=== PATIENT | male | born 1940 | race American Indian/Alaskan Native ===

== ENCOUNTER → 2019-06-13 | Emergency (ER) | payer MEDICARE ==
[~2019-06-13] MED LIST: ATROPINE 0.1% (CARDIAC) ONE; ATROPINE IV ONE; CALCIUM GLUCONATE 1,000 MG in NACL 0.9% 100 ML IV ONE; D50W (25GM) Syringe IV ONE; HumuLIN R IV ONE; INTROPIN DRIP 800 MG/D5W 250 ML 800 MG/250 ML BAG IV ONE; INTROPIN DRIP 800 MG/D5W 250 ML IV ONE; KIONEX PO ONE; LEVAQUIN 750MG/150ML 750 MG/150 ML BAG IV ONE; LEVOPHED DRIP 4 MG/NS 250 ML 4 MG/250 ML BAG IV ONE; LEVOPHED DRIP 4 MG/NS 250 ML 4 MG/250 ML BAG IV SCH; NACL 0.9% 1000 ML 1,000 ML IV ONE; NACL 0.9% 1000 ML 1,000 ML ONE; PROVENTIL IH ONE; TYLENOL PR PRN; Vasostrict 20 UNIT in NACL 0.9% 100 ML IV SCH
--- NOTE | 2019-06-13 02:51 | Emergency Department Report ---
HPI - General Chief Complaint: Dyspnea/Respdistress Time Seen by Provider: 06/13/19 01:49 - HPI HPI: 78-year-old -French male presents to the emergency department via EMS from his [facility] long-term with a complaint of some hypoxia and respiratory distress. 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 He has a history of hypertension, hydrocephalus, [id number] diabetes and has previous respiratory failure leading to tracheostomy. The patient is a poor historian but at this point his and son are at bedside providing some information. His primary care physician is a Dr. Jackson. Per EMS, the oxygen saturation was down in the 60s until he was given some supplemental oxygen and then it went up to about 85%. ED Past Medical Hx - Past Medical History Previous Medical History?: Yes Hx CVA: Yes Hx Diabetes: Yes Hx Deep Vein Thrombosis: Yes Hx COPD: Yes Additional medical history: obstructive hydrocephalus, - Surgical History Past Surgical History?: Yes Additional Surgical History: tracheostomy, g-tube - Social History Smoking Status: Unknown if ever smoked ED Review of Systems ROS: Stated complaint: SOURAV Other details as noted in HPI Comment: Unobtainable due to pts medical conditions Physical Exam - Physical Exam Vital Signs: Vital Signs 06/13/19 01:56 Temperature 99 F Pulse Rate 104 H Respiratory 25 H Rate O2 Sat by Pulse 90 Oximetry Physical Exam: GENERAL: Patient is ill-appearing and unresponsive. HENT: Normocephalic. Atraumatic. Patient has moist mucous membranes. EYES: Pupils are reactive but sluggish. NECK: Supple. Trachea in color in place. CHEST/LUNGS: Rhonchi at the bases. Coarse breath sounds. Bradypnea with some shallow snoring respirations. .There is respiratory distress noted. HEART/CARDIOVASCULAR: Irregular. Variable rate going between bradycardia and tachycardia. ABDOMEN: Abdomen is soft. PEG tube in place. SKIN: Skin is cool but dry. NEURO: The patient is unresponsive to any verbal or painful stimuli. MUSCULOSKELETAL: Contracted extremities. There is no evidence of acute injury. ED Course Vital Signs 06/13/19 01:56 Temperature 99 F Pulse Rate 104 H Respiratory 25 H Rate O2 Sat by Pulse 90 Oximetry - Reevaluation(s) Reevaluation #1: I had a long conversation with the patient's family regarding his CODE STATUS. After updating them about his ED course thus far and his critical/poor prognosis, and the fact that he is on multiple pressors and still has hypotension, the family has decided to make the patient DO NOT RESUSCITATE. DO NOT RESUSCITATE form has been signed by the patient's spouse. I was also made aware that we are unable to continue using pressors through the right upper extremity midline catheter for any extended period of time. I then went and spoke with the patient's family again regarding the need for a central venous catheter. However, they feel this is too invasive and do not want to put the patient through it. They understand that at some point the pressors may need to be stopped without a central line or PICC line. 06/13/19 03:22 Reevaluation #2: The patient was admitted to the hospitalist service. The hospitalist had a discussion with the family regarding their concerns about the patient having a prolonged expiration and the decision was made to shut off all of the pressors and trips. I was called into the room for a pronouncement. The patient is not making any spontaneous breath sounds. No spontaneous heart sounds heard. Pupils are fixed and dilated. There is no palpable femoral pulse. The rag baler shows asystole. Time of was called at 6:45 AM. 06/13/19 06:48 ED Medical Decision Making - Lab Data Result diagrams: 06/13/19 Unknown 06/13/19 Unknown - EKG Data -: EKG Interpreted by Me EKG shows normal: sinus rhythm (sinus rhythm), axis (left axis deviation), intervals (prolonged SD, QT and QTC intervals), QRS complexes (right bundle branch block, left posterior fascicular block), ST-T waves - EKG Data When compared to previous EKG there are: previous EKG unavailable Interpretation: other (sinus rhythm, prolonged SD and QTC intervals, right bundle branch block and left posterior fascicular block) - Radiology Data Radiology results: report reviewed CHEST 1 VIEW INDICATION / CLINICAL INFORMATION: SOB. Dyspnea COMPARISON: None available. FINDINGS: SUPPORT DEVICES: The tracheostomy tube and right IJ central venous lines project in expected position. HEART / MEDIASTINUM: No significant abnormality. LUNGS / PLEURA: Low lung volumes with increased airspace opacity within the left lower lung. - Medical Decision Making This patient presents from his long-term with the original complaint of some shortness of breath. However he presents with hypotension, irregular and variable heart rate and some signs of respiratory distress. The tracheostomy was changed out to a cuffed trach and the patient was placed on the vent as the patient was having some apneic episodes. The rate and rhythm on the rag baler appears erratic. It goes in between being sinus rhythm, runs of V. tach, and the heart rate has been seen in the low 30s and as high as 180. His blood pressure initially was about 70/30 and steadily was decreasing. IV fluid was started but he was not having enough response so the patient was placed on Levophed. This was quickly maxed out and then the patient was placed on vasopressin and dopamine. His only available vascular access is a midline catheter in the right upper arm and this is being utilized for all of the pressors. We are unable to give any other medications for treatment. I had a long discussion with the patient's family regarding his poor prognosis and critical status and he has been made a DO NOT RESUSCITATE. They also do not want anything further done that might be invasive but this evening includes any further peripheral IV access, further lab draws. They have been made aware about the patient's severe hyperkalemia, as well as the elevated liver enzymes concerning for shock liver. They understand that without any further IV access we are unable to give any antibiotics, the hyperkalemia cocktail. Also, there is only so much time that the midline catheter can be used for the pressors without switching to an IO or central line or a PICC. The patient's family understands and at this point it appears that they are open to a hospice consult. They feel that the patient is currently suffering in his current state and condition. The patient has been accepted for admission by the hospitalist, Dr. Ortiz. - Differential Diagnosis Sepsis, CVA, Hyperkalemia, FL Critical Care Time: Yes Critical care time in (mins) excluding proc time.: 45 Critical care attestation.: If time is entered above; I have spent that time in minutes in the direct care of this critically ill patient, excluding procedure time. Critical care time was spent on this patient and doing his initial evaluation, multiple re- evaluations, ordering and interpretation of labs and imaging, multiple discussions with the patient's family. Critical Care Time: 45 minutes ED Disposition Clinical Impression: Shock liver, Hyperkalemia Hypotension Qualifiers: Hypotension type: unspecified hypotension type Qualified Code(s): I95.9 - Hypotension, unspecified Acute respiratory failure Qualifiers: Respiratory failure complication: unspecified whether with hypoxia or hypercapnia Qualified Code(s): J96.00 - Acute respiratory failure, unspecified whether with hypoxia or hypercapnia Acute renal failure Qualifiers: Acute renal failure type: unspecified Qualified Code(s): N17.9 - Acute kidney failure, unspecified Disposition: DC-20 Is pt being admited?: Yes Condition: Critical Referrals: SOURAV COLINDRES MD [Staff Physician] - 3-5 Days Time of Disposition: 06:06
--- NOTE | 2019-06-13 03:56 | XRay Report ---
CHEST 1 VIEW INDICATION / CLINICAL INFORMATION: SOB. Dyspnea COMPARISON: None available. FINDINGS: SUPPORT DEVICES: The tracheostomy tube and right IJ central venous lines project in expected position . HEART / MEDIASTINUM: No significant abnormality. LUNGS / PLEURA: Low lung volumes with increased airspace opacity within the left lower lung. Signer Name: Nacho Mcelroy MD Signed: 06/13/2019 3:51 AM Workstation Name: [id number]
[2019-06-13 04:42] LABS: ABG Base Excess -29.4 mmol/L (-2.0-3.0); ABG HCO3 5.8 mmol/L (20.0-26.0); ABG Methemoglobin 0.8 % (0.0-1.5); ABG Oxygen Saturation 92.2 % (95.0-99.0); ABG PCO2 40.5 mm Hg; ABG PO2 118.9 mm Hg (80.0-90.0)
[2019-06-13 04:51] LABS: ABG PH < 7.3 pH Units (7.350-7.450)
[2019-06-13 04:57] LABS: Mean Corpuscular HGB Conc 28 % (32-34); Red Blood Count 4.11 M/mm3 (3.65-5.03); Red Cell Distribution Width 18.3 % (13.2-15.2)
[2019-06-13 05:04] LABS: Hematocrit 49.7 % (35.5-45.6); Mean Corpuscular Volume 121 fl (84-94)
[2019-06-13 05:06] LABS: Blood Urea Nitrogen TNR mg/dL (9-20)
[2019-06-13 05:07] LABS: Alanine Aminotransferase TNR units/L (7-56); BUN/Creatinine Ratio TNR; Calcium TNR mg/dL (8.4-10.2)
[2019-06-13 05:08] LABS: Albumin TNR g/dL (3.9-5); Hemolysis Index TNR
[2019-06-13 05:26] LABS: Albumin 2.7 g/dL (3.9-5); BUN/Creatinine Ratio 27; Blood Urea Nitrogen 71 mg/dL (9-20); Calcium 8.8 mg/dL (8.4-10.2); Hemolysis Index 18
[2019-06-13 05:35] LABS: Alanine Aminotransferase 1898 units/L (7-56)
[2019-06-13 05:40] LABS: Chol/HDL Ratio 6.25 %; HDL Cholesterol 16 mg/dL (40-59); LDL Cholesterol,Direct 55 mg/dL (50-130)
[2019-06-13 05:48] LABS: Band Neutrophils # (Manual) 1.3 K/mm3; Eosinophils % (Manual) 0 % (0.0-4.3); Total Cells Counted 100
[2019-06-13 05:49] LABS: Anisocytosis 1+; Macrocytosis 2+
[2019-06-13 05:50] LABS: Large Platelets Few; Platelet Estimate Consistent w Auto
[2019-06-13 05:51] LABS: Platelet Count 148 K/mm3 (140-440)
[2019-06-13 06:51] VITALS: BP 47/19
--- NOTE | 2019-06-13 08:05 | History and Physical Report ---
CHIEF COMPLAINT: Shortness of breath. HISTORY OF PRESENTING ILLNESS: The patient is a 78-year-old male brought from [facility] because of difficulty in breathing. The patient had past medical history of hemorrhagic stroke and subarachnoid hemorrhage and has been nonverbal since then and was unable to give information or history. There was no history of fever or chills and no history of chest pain, nausea or vomiting. The patient was noted to have low oxygen saturation going down to the 60s and was given supplemental oxygen by EMS. The patient was subsequently hooked onto the ventilation through the tracheostomy and the family members said not to do any chest compression and also, the patient was placed on IV pressors involving Levophed and dopamine to support the blood pressure and during the time of my evaluation, family said they want everything discontinued including the ventilator , IV pressors, all IV treatments and they want complete comfort care without any pressor, chest compression, ventilator, IV fluids or IV treatments/Antibiotics. PAST MEDICAL HISTORY: Pertinent for cerebrovascular accident with subarachnoid hemorrhage. Also, the patient has past medical history of diabetes mellitus, deep vein thrombosis, COPD, obstructive hydrocephalus, aphasia, and past history of tracheostomy and G-tube placement. FAMILY HISTORY: Noncontributory. SOCIAL HISTORY: The patient stays at a halfway, does not smoke, does not drink alcohol and does not use illicit drugs. MEDICATIONS: The patient's home medications are not known at this time. ALLERGIES: THE PATIENT IS ALLERGIC TO PENICILLIN. REVIEW OF SYSTEMS: CONSTITUTIONAL: There is no fever, no chills, no diaphoresis. HEENT: There is no headache or sore throat. CARDIOVASCULAR SYSTEM: There is no chest pain or orthopnea. RESPIRATORY SYSTEM: Shortness of breath is present. No cough. GASTROINTESTINAL SYSTEM: There is no nausea, no vomiting, no abdominal pain, diarrhea or constipation. NEUROLOGICAL SYSTEM: There is no numbness, no dizziness, no new altered mental status on top of the patient's baseline. MUSCULOSKELETAL SYSTEM: There is no joint pain or swelling. DERMATOLOGICAL SYSTEM: There is no skin rash or itching. GENITOURINARY SYSTEM: There is no dysuria, hematuria, or flank pain. Rest of system review is normal. PHYSICAL EXAMINATION: GENERAL: At the time of exam, the patient was unresponsive and not responding to any noxious stimulus and was not in acute distress. HEENT: The patient's pupils were sluggishly reactive to light. NECK: Supple with tracheostomy anteriorly and hooked up to the ventilator with no JVD or carotid bruit. CARDIOVASCULAR SYSTEM: Showed normal first and second heart sounds with no gallops or murmur and with a low heart rate running in the 30s and low blood pressure with systolic running in the 40s. RESPIRATORY SYSTEM: Showed good air entry through the ventilator through the tracheostomy down to the lungs with no abnormal breath sounds. GASTROINTESTINAL SYSTEM: Showed the patient with G-tube with no organomegaly or rigidity elicited. NEUROLOGIC: Shows no new focal deficit; however, the patient is unresponsive and not responding to noxious stimulus. MUSCULOSKELETAL SYSTEM: Showed no joint swelling or tenderness. DERMATOLOGICAL SYSTEM: Showed no skin rash. GENITOURINARY SYSTEM: Showed no costovertebral angle tenderness. PERTINENT LABORATORY: The patient had CBC done with normal white count, normal hemoglobin with high hematocrit of 49.7 and high MCV of 121. The patient's CBC differential showed high lymphocyte count of 67%. The patient's coagulation studies show high D-dimer of 5142. The patient's arterial blood gas showed low pH of 7.3 with normal pCO2 and elevated pO2 of 108 with low O2 saturation of 92.2 and this was done on FiO2 of 10. The patient's chemistry showed high sodium level of 159 with high potassium level of greater than 5 and high chloride level of 109 with low CO2 of 5 and elevated BUN of 71 with high creatinine of 2.6. The patient's lactic acid level was high with a value of 18.2 and the patient's liver transaminases show high AST of 1196 with high ALT of 1898. The patient's troponin level is high with a value of 0.306. The patient's brain natriuretic peptide level is high with a value of 7080 and albumin level is low with a value of 2.7. IMAGING STUDIES: The patient had chest x-ray done that shows the tracheostomy tube and the right IJ central venous line project in the expected positions. There is finding of low lung volumes with increased airspace opacity within the left lower lung. DIAGNOSES: 1. Sepsis. 2. Lactic acidosis. 3. Hypernatremia. 4. Left lung pneumonia. 5. Elevated troponin level and other diagnosis included transaminitis. PLAN OF CARE: 1. The patient will be admitted to [facility] since the family said they want the ventilator discontinued and every IV fluid or treatment through the vein discontinued and also, family made the patient DNR with request not to do any chest compression or any further aggressive treatment. 2. The patient will be on sequential compressive device for deep vein thrombosis prophylaxis. 3. The patient would be on Tylenol suppository 650 mg every 4 hours for fever and headache. 4. The patient will be on oxygen by nasal cannula, which will be titrated to keep O2 sat at 95% or more. 5. The patient will be observed and given confort care since family does not want any more thing done including IV antibiotics and IV fluids. JOB# [id number] OCN/DEEP SCHUSTER
--- NOTE | 2019-06-14 13:33 | Discharge Summary ---
SUMMARY HOSPITAL COURSE: The patient was admitted on 06/13/2019, time 6:37 in the morning. The patient was admitted because of sepsis, respiratory distress, possible pneumonia, elevated cardiac enzymes, and shortly after the patient was admitted, he was made a DNR by the family, and shortly after admission was done on the patient, family said to discontinue all treatments and the patient subsequently after the ventilator was discontinued and all IV pressors were discontinued. The patient was finally pronounced at 6:45 a.m. by the Emergency Room physician, Dr. Ortiz. CAUSE OF : Includes: Include: 1. Sepsis. 2. Lactic acidosis. 3. Hypernatremia. 4. Left lung pneumonia. 5. Cardiomyopathy. JOB# [id number] OCN/NTS
== END ==
LOC: SUATTDRO 01:45 → ED 01:45
PROVIDERS: ATTEND Internal Medicine
DX: N17.9 Acute kidney failure, unspecified (principal); I95.9 Hypotension, unspecified; J96.00 Acute respiratory failure, unspecified whether with hypoxia or hypercapnia; K72.00 Acute and subacute hepatic failure without coma; E87.5 Hyperkalemia; J44.9 Chronic obstructive pulmonary disease, unspecified; E11.9 Type 2 diabetes mellitus without complications; I25.2 Old myocardial infarction; Z98.890 Other specified postprocedural states; Z88.0 Allergy status to penicillin
CPT/HCPCS: 36415; 71045; 80053; 80061; 82140; 82803; 83880; 84484; 85007; 85025; 85379; 87040; 93005; 93010; 96365; 96366; 96368; 96375; 99291; J0461; J1265; J7030; 94002; J0610